=== PATIENT | male | born 1930 | race Asian ===

== ENCOUNTER → 2017-11-20 | Outpatient (CLI) | payer MEDICARE, BC | END | disposition home or self-care (01) | LOC: RAD 10:01 | DX: M54.2 Cervicalgia (principal); R05 Cough | CPT/HCPCS: 70490; 71046 ==

== ENCOUNTER 2019-01-25 12:47 | Observation (INO) | payer MEDICARE, BC, OTHER ==
[2019-01-25 13:19] LABS: ADD MAN DIFF? NO
[2019-01-25 13:37] LABS: BASOPHILS % 0.2 % (0.0-2.0); EOSINOPHILS % 0.1 % (0.0-7.0); HEMATOCRIT 43.2 % (42.0-52.0); HEMOGLOBIN 14.5 g/dl (14.0-18.0); LYMPHOCYTES # 1.8 10^3/ul (0.8-2.9); LYMPHOCYTES % 11.8 % (15.0-51.0); MEAN CORPUSCULAR HGB CONC 33.6 g/dl (32.0-37.0); MEAN CORPUSCULAR VOLUME 92.3 fl (82.0-101.0); MEAN PLATELET VOLUME 9.5 fl (7.4-10.4); MONOCYTES % 6.4 % (0.0-11.0); NEUTROPHIL # 12.3 10^3/ul (1.6-7.5); PLATELET COUNT 339 10^3/UL (140-415); RED BLOOD COUNT 4.68 10^6/ul (4.70-6.10); RED CELL DISTRIBUTION WIDTH 14.1 % (11.5-14.5)
[2019-01-25 13:37] LABS: WHITE BLOOD COUNT 15.1 10^3/ul (4.8-10.8)
[2019-01-25 13:44] LABS: PROTIME 13.3 Sec (11.9-14.9)
[2019-01-25 13:45] LABS: PARTIAL THROMBOPLASTIN TIME 27.5 Sec (23.0-35.0)
[2019-01-25 14:18] LABS: ALANINE AMINOTRANSFERASE 23 IU/L (13-69); ALBUMIN 3.9 g/dl (3.3-4.9); ALBUMIN/GLOBULIN RATIO 1.25; ALKALINE PHOSPHATASE 84 IU/L (42-121); ANION GAP 15 (5-13); ASPARTATE AMINO TRANSFERASE 26 IU/L (15-46); BILIRUBIN,INDIRECT 0.6 mg/dl (0-1.1); BILIRUBIN,TOTAL 0.6 mg/dl (0.2-1.3); BLOOD UREA NITROGEN 29 mg/dl (7-20); CARBON DIOXIDE 24 mmol/L (21-31); CHLORIDE 101 mmol/L (97-110); CREATININE 1.18 mg/dl (0.61-1.24); GLUCOSE 192 mg/dl (70-220); LIPASE 78 U/L (23-300); POTASSIUM 4.2 mmol/L (3.5-5.1); SODIUM 140 mmol/L (135-144)
[2019-01-25 14:47] LABS: URINE PH (Dip) POC 5.5 (5.0-8.5)
[2019-01-25 14:47] LABS: URINE BLOOD (Dip) POC Negative (NEGATIVE); URINE GLUCOSE (Dip) POC Negative (NEGATIVE); URINE KETONES (Dip) POC Negative (NEGATIVE); URINE LEUKOCYTE EST (Dip) POC Negative (NEGATIVE); URINE NITRITE (Dip) POC Negative (NEGATIVE); URINE TOTAL PROTEIN POC Trace (NEGATIVE)
[2019-01-25] MEDS ORDERED: NACL 0.9% 3 ML SYG IV (16:30)
[2019-01-25] MEDS ORDERED: MAGNESIUM HYDROXIDE 30ML CUP PO (16:30)
[2019-01-25] MEDS ORDERED: HYDROCODONE/APAP (5/325) TAB PO (16:30)
[2019-01-25] MEDS ORDERED: DOCUSATE SODIUM 100 MG CAP PO (16:30)
[2019-01-25] MEDS ORDERED: ONDANSETRON 4 MG INJ IV (16:30)
[2019-01-25] MEDS: DEXTROSE 5%-0.45% NACL 1,000 ML IV (17:43)
[2019-01-25] MEDS: PANTOPRAZOLE 40 MG INJ IV (17:43)
[2019-01-25] MEDS: ACETAMINOPHEN 325 MG TAB PO (18:07)
[2019-01-25] MEDS: SUCRALFATE 1 GM TAB PO ×2 (18:08→21:14)
[2019-01-25] MEDS ORDERED: NON-FORMULARY/PATIENT OWN MED (Simvastatin* (Zocor*) 20 MG) PO (21:00)
[2019-01-25] MEDS: ATORVASTATIN 20 MG TAB PO (21:14)
[2019-01-26] MEDS: DEXTROSE 5%-0.45% NACL 1,000 ML IV ×2 (05:38→18:52)
[2019-01-26] MEDS: PANTOPRAZOLE 40 MG INJ IV ×2 (05:54→18:00)
[2019-01-26 06:11] LABS: ADD MAN DIFF? NO
[2019-01-26 06:22] LABS: BASOPHILS % 0.4 % (0.0-2.0); EOSINOPHILS # 0.1 10^3/ul (0.0-0.5); EOSINOPHILS % 0.6 % (0.0-7.0); HEMATOCRIT 36.5 % (42.0-52.0); HEMOGLOBIN 12.2 g/dl (14.0-18.0); LYMPHOCYTES # 1.8 10^3/ul (0.8-2.9); LYMPHOCYTES % 17.6 % (15.0-51.0); MEAN CORPUSCULAR HGB CONC 33.4 g/dl (32.0-37.0); MEAN CORPUSCULAR VOLUME 92.6 fl (82.0-101.0); MEAN PLATELET VOLUME 8.9 fl (7.4-10.4); MONOCYTE # 1.5 10^3/ul (0.3-0.9); MONOCYTES % 14.4 % (0.0-11.0); NEUTROPHIL # 6.9 10^3/ul (1.6-7.5); NEUTROPHILS % 66.6 % (39.0-77.0); PLATELET COUNT 223 10^3/UL (140-415); RED BLOOD COUNT 3.94 10^6/ul (4.70-6.10); RED CELL DISTRIBUTION WIDTH 13.8 % (11.5-14.5)
[2019-01-26 06:22] LABS: WHITE BLOOD COUNT 10.3 10^3/ul (4.8-10.8)
[2019-01-26 06:38] LABS: ANION GAP 10 (5-13); BLOOD UREA NITROGEN 27 mg/dl (7-20); CALCIUM 8.4 mg/dl (8.4-10.2); CARBON DIOXIDE 25 mmol/L (21-31); CHLORIDE 104 mmol/L (97-110); CREATININE 1.06 mg/dl (0.61-1.24); GLUCOSE 120 mg/dl (70-220); MAGNESIUM 2.2 mg/dl (1.7-2.5); POTASSIUM 3.7 mmol/L (3.5-5.1); SODIUM 139 mmol/L (135-144)
[2019-01-26 07:09] LABS: THYROID STIMULATING HORMONE 0.862 MIU/L (0.465-4.680)
[2019-01-26] MEDS: LEVOTHYROXINE 50 MCG TAB PO (07:20)
[2019-01-26] MEDS: AMLODIPINE 10 MG TAB PO (08:45)
[2019-01-26] MEDS: SUCRALFATE 1 GM TAB PO ×4 (08:45→21:00)
[2019-01-26] MEDS: POTASSIUM CHLORIDE (SR) 20 MEQ TAB PO (08:45)
[2019-01-26] MEDS: ISOSORBIDE MONONITRATE(SR)30 MG TAB PO (08:46)
[2019-01-26] MEDS: PROPOFOL 20 ML (19:34)
[2019-01-26] MEDS: ATORVASTATIN 20 MG TAB PO (21:00)
[2019-01-27] MEDS: PANTOPRAZOLE 40 MG INJ IV (06:02)
[2019-01-27] MEDS: LEVOTHYROXINE 50 MCG TAB PO (06:03)
[2019-01-27] MEDS: DEXTROSE 5%-0.45% NACL 1,000 ML IV ×2 (08:12→12:32)
[2019-01-27] MEDS: SUCRALFATE 1 GM TAB PO ×2 (08:20→12:32)
[2019-01-27] MEDS: AMLODIPINE 10 MG TAB PO (08:21)
[2019-01-27] MEDS: ISOSORBIDE MONONITRATE(SR)30 MG TAB PO (08:21)
[2019-01-27 09:29] LABS: ADD MAN DIFF? NO
[2019-01-27 09:39] LABS: BASOPHIL # 0.1 10^3/ul (0.0-0.1); BASOPHILS % 0.7 % (0.0-2.0); EOSINOPHILS # 0.2 10^3/ul (0.0-0.5); EOSINOPHILS % 2.4 % (0.0-7.0); HEMATOCRIT 37.2 % (42.0-52.0); HEMOGLOBIN 12.6 g/dl (14.0-18.0); LYMPHOCYTES # 1.7 10^3/ul (0.8-2.9); LYMPHOCYTES % 18.9 % (15.0-51.0); MEAN CORPUSCULAR HEMOGLOBIN 30.7 pg (29.0-33.0); MEAN CORPUSCULAR HGB CONC 33.9 g/dl (32.0-37.0); MEAN CORPUSCULAR VOLUME 90.7 fl (82.0-101.0); MONOCYTE # 1.1 10^3/ul (0.3-0.9); MONOCYTES % 11.8 % (0.0-11.0); NEUTROPHILS % 65.8 % (39.0-77.0); PLATELET COUNT 229 10^3/UL (140-415); RED CELL DISTRIBUTION WIDTH 13.8 % (11.5-14.5)
[2019-01-27 09:39] LABS: WHITE BLOOD COUNT 9.1 10^3/ul (4.8-10.8)
[2019-01-28] MEDS ORDERED: AMLODIPINE 5 MG TAB PO (09:00)
== END 2019-01-27 16:13 | disposition home or self-care (01) ==
LOC: E/R 12:47 → 6WM 16:00
PROVIDERS: Internal Medicine
DX: K22.10 Ulcer of esophagus without bleeding (principal); K29.50 Unspecified chronic gastritis without bleeding; K44.9 Diaphragmatic hernia without obstruction or gangrene; I10 Essential (primary) hypertension; E03.9 Hypothyroidism, unspecified; Z86.73 Personal history of transient ischemic attack (TIA), and cerebral infarction without residual deficits; I71.4 Abdominal aortic aneurysm, without rupture
CPT/HCPCS: 36415; 71045; 74176; 80048; 80053; 81003; 83690; 83735; 84443; 85025; 85610; 85730; 86850; 86900; 86901; 88305; 88312; 88313; 92526; 92610; 97162; 97167; 97530; 97535; 99285-25; G0378